=== PATIENT | female | born 1950 | race Caucasian/White ===

== ENCOUNTER → 2016-08-22 | Outpatient (CLI) | payer OTHER | LOC: FIMAGING 16:06 | DX: Z12.31 Encounter for screening mammogram for malignant neoplasm of breast (principal) | CPT/HCPCS: G0202 ==

== ENCOUNTER 2017-02-04 11:43 | Emergency (ER) | payer OTHER ==
[2017-02-04 11:53] VITALS: RESP 16
[2017-02-04] MEDS ORDERED: NS 1,000 ML IV ONE (12:08)
[2017-02-04] MEDS ORDERED: ONDANSETRON 4 MG/2 ML VIAL IVP ONE ×2 (12:08→14:42)
[2017-02-04 12:17] LABS: % IMMATURE GRANULYOCYTES 0.6 % (0.0-1.1); ABSOLUTE IMMATURE GRANULOCYTES 0.06 10^3/uL (0.00-0.10); ADD DIFF? NO; ADD MORPH? NO; ADD SCAN? NO; ATYPICAL LYMPHOCYTE FLAG 0 (0-99); FRAGMENT RBC FLAG 0 (0-99); HEMATOCRIT 37.5 % (38.0-47.0); HEMOGLOBIN 12.9 g/dL (12.6-16.3); LEFT SHIFT FLG 0 (0-99); LIPEMIA HEMOLYSIS FLAG 90 (0-99); MEAN CELL HEMOGLOBIN 30.5 pg (27.9-34.1); MEAN CELL HEMOGLOBIN CONCENTR. 34.4 g/dL (32.4-36.7); MEAN CELL VOLUME 88.7 fL (81.5-99.8); MEAN PLATELET VOLUME 9.1 fL (8.7-11.7); PLATELET CLUMPS FLAG 0 (0-99); PLATELET COUNT 309 10^3/uL (150-400); RED BLOOD CELL COUNT 4.23 10^6/uL (4.18-5.33); RED CELL DISTRIBUTION WIDTH 12.2 % (11.5-15.2)
--- NOTE | 2017-02-04 12:29 | EDPHY ---
H & P Time Seen by Provider: 02/04/17 12:11 HPI/ROS: CHIEF COMPLAINT: Abdominal pain, nausea, vomiting HISTORY OF PRESENT ILLNESS: The patient is a 66 y/o female with a history of uroepithelial cancer complaining of abdominal pain, nausea, and vomiting. She received her 1st dose of chemotherapy 5 days ago. She was doing well until yesterday, when she developed nausea and vomiting, despite Phenergan and Zofran at home. Since then she has had few episodes of vomiting and difficulty tolerating oral fluids. Associated with inability to have a bowel movement and crampy moderate abdominal pain. Last bowel movement was several days ago. She usually has a bowel movement daily and takes medications as needed for constipation. She has been quite constipated since being on a fentanyl patch and this has been problematic. REVIEW OF SYSTEMS: Aside from elements discussed in the HPI, a comprehensive 10-point review of systems was reviewed and is negative. 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 Social History: at bedside, lives in [place], retired Smoking Status: Current every day smoker Physical Exam: General Appearance: Alert, uncomfortable Eyes: Pupils equal and round, no conjunctival pallor or injection ENT, Mouth: Mucous membranes dry Neck: Normal inspection Respiratory: Lungs are clear to auscultation Cardiovascular: Regular rate and rhythm Gastrointestinal: Abdomen is distended, diffuse tenderness, decreased bowel sounds Neurological: A&O, nonfocal exam Skin: Warm and dry, no rash Extremities: Nontender, no pedal edema Psychiatric: Mood and affect normal Constitutional: Initial Vital Signs Temperature (C) 36.7 C 02/04/17 11:48 Heart Rate 52 L 02/04/17 11:48 Respiratory Rate 16 02/04/17 11:48 Blood Pressure 162/77 H 02/04/17 11:48 O2 Sat (%) 100 02/04/17 11:48 O2 Delivery Mode Room Air O2 (L/minute) 2 Allergies/Adverse Reactions: Penicillins Allergy (Verified 12/24/16 14:45) Hives EGG PLANT Allergy (Uncoded 12/24/16 14:45) Home Medications: Medication Instructions Recorded Dextroamphetamine ER [Dexedrine 15 15 mg PO DAILY 12/24/16 MG (*)] Docusate Sodium [Colace 100 MG (*)] 100 mg PO Q6HRS PRN 12/24/16 FLUoxetine [Prozac 20 MG (*)] 20 mg PO DAILY 12/24/16 HYDROcodone/APAP [[place] 0.5 tab PO Q6HRS PRN 12/24/16 (*)] [place] Carbonate ER [Eskalith Cr 450 mg PO DAILY 12/24/16 450 mg (*)] buPROPion [Wellbutrin 75mg (*)] 75 mg PO DAILY 12/24/16 clonazePAM [Klonopin (*)] 0.5 mg PO BID 12/24/16 Ondansetron Odt [Zofran Odt 4 mg 4 mg PO Q4 PRN #10 tab 02/04/17 (RX)] fentaNYL 02/04/17 Medical Decision Making - Diagnostics Imaging Results: Abdomen CT 02/04/17 12:29 Impression: 1. Interim placement of a pigtailed internalized left ureteral stent with moderate residual left hydronephrosis. There is also been development of a crescentic mildly complex left perinephric fluid collection which could represent a hematoma, although superinfection is not excluded. 2. Interim development of small-volume ascites in the perihepatic space and in the caudal pelvic cul-de-sac. 3. Pronounced constipation/obstipation. 4. Status post bilateral hip arthroplasties. 5. Stable appearance of a benign posterior right hepatic lobe cyst. 5. Small central sliding hiatal hernia. Findings were discussed with GENESIS AGUILAR MD at 13:38, on 02/04/2017. Imaging: Discussed imaging studies w/ bingo caller Radiologist, I viewed and interpreted images myself ED Course/Re-evaluation: The patient is a 66 y/o female with a history of uroepithelial cancer, presenting with abdominal pain and vomiting, concerning for small bowel obstruction. CT scan of the abdomen and pelvis ordered. 1340: CT scan of the abdomen pelvis reveals constipation, no evidence of small- bowel obstruction. 1342: Reassessed patient and discussed imaging findings. Nausea is better after the Zofran. Plan on a soap suds enema. 1440: Reassessed patient, she is still nauseous. 4mg IV Zofran administered. Has not received the enema yet. 3:00 p.m.: Patient signed over to Dr. Huerta at shift change. The plan is for her to receive an enema. If the pain resolves after the enema and she has a BM, the plan will be to discharge the patient home. Differential Diagnosis: Differential diagnosis includes though it is not limited to appendicitis, cholecystitis, diverticulitis, pyelonephritis, bowel perforation, small bowel obstruction. - Data Points Laboratory Results: Laboratory Results 02/04/17 12:05 02/04/17 12:05 Medications Given: Discontinued Medications Sodium Chloride (Ns) 1,000 mls @ 0 mls/hr IV ONCE ONE PRN Reason: Wide Open Stop: 02/04/17 12:09 Last Admin: 02/04/17 12:11 Dose: 1,000 mls Morphine Sulfate (Morphine) 4 mg IVP Q1H PRN PRN Reason: Pain, Severe Unable to Take PO Last Admin: 02/04/17 13:22 Dose: 4 mg Ondansetron HCl (Zofran) 4 mg IVP EDNOW ONE Stop: 02/04/17 12:09 Last Admin: 02/04/17 12:11 Dose: 4 mg Ondansetron HCl (Zofran) 4 mg IVP EDNOW ONE Stop: 02/04/17 14:43 Last Admin: 02/04/17 15:00 Dose: 4 mg Departure - Departure Disposition: Home, Routine, Self-Care Clinical Impression: Constipation Qualifiers: Constipation type: drug induced constipation Qualified Code(s): K59.03 - Drug induced constipation Condition: Good Instructions: Constipation (ED) Additional Instructions: Follow up with your oncologist within 1-3 days. Take over the counter magnesium citrate as directed, one time, when you return home. Return to the ED if you experience chest pain, shortness of breath, urinary complaints, vomiting or other worsening of your symptoms. Referrals: Dorie Jansen MD [Primary Care Provider] - As per Instructions Prescriptions: Ondansetron Odt [Zofran Odt 4 mg (RX)] 4 mg PO Q4 PRN #10 tab PRN Reason: Nausea/Vomiting, Use 1st Report Scribed for: Genesis Aguilar Report Scribed by: Evangelina Anderson Date of Report: 02/04/17 Time of Report: 12:19 Physician Review and Approval Statement: 02/04/17 12:19 Portions of this note were transcribed by a manager of medical. I personally performed a history, physical exam, medical decision making, and confirmed accuracy of information the transcribed note.
[2017-02-04 12:36] LABS: ALANINE AMINOTRANSFERASE 49 IU/L (9-52); ALBUMIN 4.6 g/dL (3.5-5.0); ALKALINE PHOSPHATASE 97 IU/L (38-126); ANION GAP 13 mEq/L (8-16); ASPARTATE AMINOTRANSFERASE 29 IU/L (14-46); BILIRUBIN,TOTAL 0.8 mg/dL (0.1-1.4); BILIRUBIN-CONJUGATED 0.3 mg/dL (0.0-0.5); BILIRUBIN-UNCONJUGATED 0.5 mg/dL (0.0-1.1); CALCIUM 10.3 mg/dL (8.5-10.4); CARBON DIOXIDE 24 mEq/l (22-31); CHLORIDE 98 mEq/L (97-110); CREATININE 1.1 mg/dL (0.6-1.0); GLOMERULAR FILTRATION RATE 50; GLUCOSE 125 mg/dL (70-100); POTASSIUM 3.6 mEq/L (3.5-5.2); SODIUM 135 mEq/L (134-144); TOTAL PROTEIN 7.3 g/dL (6.3-8.2)
[2017-02-04] MEDS ORDERED: IOPAMIDOL (ISOVUE-300) 100 ML BTL ONE (12:53)
[2017-02-04] MEDS ORDERED: ONDANSETRON 4 MG/2 ML VIAL ONE (14:42)
[2017-02-04] MEDS ORDERED: ONDANSETRON 4MG PREPACK#2 BTL TAKEHOME ONE (16:58)
[2017-02-04 17:36] VITALS: BP 143/82; PULSE 57; TEMP 99.1; O2SAT 94
== END 2017-02-04 17:36 | disposition home or self-care (01) ==
DX: K59.03 Drug induced constipation (principal); F17.200 Nicotine dependence, unspecified, uncomplicated; Z85.51 Personal history of malignant neoplasm of bladder
CPT/HCPCS: 74177; 96361; 96374; 96375; 96376; 99285; J2405; Q9967

== ENCOUNTER → 2018-02-04 | Outpatient (CLI) | payer OTHER | LOC: FIMAGING 16:06 | PROVIDERS: ATTEND Internal Medicine | DX: Z12.31 Encounter for screening mammogram for malignant neoplasm of breast (principal) ==